=== PATIENT | male | born 1935 | race Caucasian/White ===

== ENCOUNTER 2019-04-20 13:10 | Inpatient (IN) ==
[2019-04-20] MEDS ORDERED: *HR* OxyCODONE Immed Rel 5 MG TABLET PO PRN (16:00)
[2019-04-20] MEDS ORDERED: hydroCHLOROthiazide 25 MG TABLET PO SCH (18:00)
[2019-04-20] MEDS: Apixaban 5 MG TABLET PO SCH (19:55)
[2019-04-20] MEDS: Hyoscyamine SL 0.125 MG TAB.SUBL PO SCH (19:56)
[2019-04-21 07:27] LABS: Basophils % 0.2 %; Eosinophils # 0.2 K/mcL (0.0-0.6); Hemoglobin 10.2 g/dL (12.9-16.9); Immature Granulocytes % 0.3 % (0-4); Lymphocytes # 0.9 K/mcL (0.6-4.6); Lymphocytes % 9.7 %; Mean Corpuscular Hemoglobin 35.3 pg (28.0-33.3); Mean Corpuscular Volume 103.8 fL (83.0-100.0); Mean Platelet Volume 9.9 fL (9.4-12.4); Monocytes % 11.1 %; Neutrophils # 6.9 K/mcL (1.6-8.9); Platelet Count 453 K/mcL (140-400); Red Blood Count 2.89 M/mcL (4.19-5.50); Red Cell Distribution Width 12.8 % (11.5-14.5); Segmented Neutrophils % 76.7 %
[2019-04-21 07:50] LABS: INR 1.4; Prothrombin Time 15.9 Seconds (9.4-12.1)
[2019-04-21 07:52] LABS: BUN/Creatinine Ratio 31 (6-26); Blood Urea Nitrogen 22 mg/dL (8-23); Calcium 8.5 mg/dL (8.6-10.3); Carbon Dioxide 28 mEq/L (23-29); Chloride 104 mEq/L (98-107); Glucose 104 mg/dL (70-105); Osmolality,Calculated 290 (280-300); Potassium 3.7 mEq/L (3.5-5.1); Sodium 138 mEq/L (136-145); eGFR For African Americans > 60 (> 60); eGFR For Non-African Americans > 60 (> 60)
[2019-04-21 07:53] LABS: Activated Partial Thrombo Time 35.5 Seconds (26.0-36.0)
[2019-04-21] MEDS: Hydroxyurea 500 MG CAPSULE PO SCH (09:29)
[2019-04-21] MEDS: amLODIPine 5 MG TABLET PO SCH (09:29)
[2019-04-21] MEDS: Apixaban 5 MG TABLET PO SCH ×2 (09:29→21:45)
[2019-04-21] MEDS: Finasteride 5 MG TABLET PO SCH (09:29)
[2019-04-21] MEDS: hydroCHLOROthiazide 25 MG TABLET PO SCH (09:29)
[2019-04-21] MEDS: Lisinopril 20 MG TABLET PO SCH (09:30)
--- NOTE | 2019-04-21 12:11 | Internal Med History&Physical ---
Date of Encounter: 04/21/19 Time of Encounter: 11:35 Assessment and Plan (1) Status post total hip replacement, left Current visit: No Status: Acute PT and OT evaluations with ongoing intervention will be done. Continue Eliquis for DVT prophylaxis. (2) Macrocytic anemia Current visit: Yes Status: Acute Anemia testing will be done in a.m. (3) Gout Current visit: Yes Status: Acute Uric acid level will be checked in a.m. Qualifiers: Gout site: unspecified site Gout etiology: unspecified cause Chronicity: chronic Presence of tophus: without tophus Qualified Code(s): M1A.9XX0 - Chronic gout, unspecified, without tophus (tophi) (4) History of DVT of lower extremity Current visit: No Status: Chronic Continue Eliquis (5) Atrial fibrillation Current visit: No Status: Chronic Continue Eliquis Qualifiers: Atrial fibrillation type: unspecified Qualified Code(s): I48.91 - Unspec ified atrial fibrillation (6) BPH (benign prostatic hyperplasia) Current visit: No Status: Chronic Continue Proscar and Flomax. Qualifiers: Lower urinary tract symptom presence: unspecified whether lower urinary tract symptoms present Qualified Code(s): N40.0 - Benign prostatic hyperplasia without lower urinary tract symptoms (7) HTN (hypertension) Current visit: No Status: Chronic Continue lisinopril, HCTZ, and Norvasc. Qualifiers: Hypertension type: unspecified Qualified Code(s): I10 - Essential (primary) hypertension (8) Thrombocytosis Current visit: No Status: Chronic Continue hydroxyurea. Internal Medicine - H&P: HPI Chief complaint: Reevaluation left THR Admitted From: Hospital to Hospital Transfer Plans for Post Hospital Care: Home History of present illness: Mr. Pastrana is a 83 year old male who was admitted to [facility] swing bed following [facility] 07-20 [facility] stay for revision left THR. He had elective left THR 04/13/2019 and was discharged home the following day. While at outpatient therapy at [facility] 04/16/2019 he experienced a fall sustaining a periprosthetic fracture of lesser trochanter. He underwent left THR revision surgery on April 17 and was discharged to swing bed for ongoing care needs. Orthopedic history is significant for right reverse total shoulder replacement March 2018 and right hip fracture with plate and screw repair in 2013. He has had right knee injections. He has diagnoses of gout and DJD. Past Med Surg Social Fam HX - Past Medical History Medical history: arthritis, atrial fibrillation, DVT, hypertension, other Additional medical history: IBS, pacemaker, polycythemia vera, thrombocytosis Psychiatric history: no psych history - Past Surgical History Surgical History: appendectomy, orthopedic, other, pacemaker/AICD Additional surgical history: tonsillectomy. right TSR. hip pinning d/t fx. left total hip replacement - Social History Smoking Status: Former smoker Smokeless Tobacco Status: No Alcohol use: heavy Drug use: none - Family History Brother Hx Family Cardiac Disorders: Yes Father Living Status: Hx Family Cardiac Disorders: Yes Hx Family Cancer: Yes (prostate) Mother Living Status: Internal Medicine - H&P: Meds Acetaminophen [Tylenol] 1,000 mg PO HS PRN 03/24/18 [History] Finasteride [Proscar] 5 mg PO QAM 03/24/18 [History] Lisinopril-HCTZ 20-12.5 [Prinzide 20-12.5] 1 tab PO QAM 03/24/18 [History] Tamsulosin [Flomax] 0.4 mg PO BID 03/24/18 [History] Hydroxyurea [Hydrea] 500 mg PO QAM #90 capsule 11/19/18 [Rx] Apixaban [Eliquis] 5 mg PO BID #60 tablet 12/31/18 [Rx] Amlodipine Besylate 10 mg PO DAILY 04/13/19 [History] Diclofenac Sodium 1 appl TD 3-4XD PRN 04/13/19 [History] Docusate Sodium [Colace] 100 mg PO BID 5 Days #10 capsule 04/13/19 [Rx] Hyoscyamine Sulfate [Hyoscyamine Sulfate ER] 0.375 mg PO HS 04/13/19 [History] OxyCODONE Immed Rel [Roxicodone 5 MG] 5 mg PO Q6HR PRN 5 Days #20 tablet 04/13/19 [Rx] Lisinopril/Hydrochlorothiazide [Lisinopril-Hctz 20-12.5 mg Tab] 0.5 tab PO QPM 04/16/19 [History] OxyCODONE Immed Rel [Roxicodone 5 MG] 5 mg PO Q6HR PRN 5 Days #20 tablet 04/20/19 [Rx] Allergy/AdvReac Type Severity Reaction Status Date / Time No Known Allergies Allergy Verified 04/06/19 10:30 All Systems PM: A 10-system review of systems was performed and is negative for pertinent findings except as documented above in the HPI. Review of systems: Gen.: His weight has increased minimally from 87.09 kg on 03/24/2018 to 91.172 kg on admission now Cardiovascular: He has history of hypertension and chronic atrial fibrillation. 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 He has had bilateral leg DVTs and is on Eliquis. He denies pulmonary embolism MS or heart failure. Respiratory: He smoked from age [age] never exceeding 2 packs per day. He denies chronic lung disease and does not use home oxygen. He denies testing for KRISTIE. GI: He has had hemorrhoidectomy and appendectomy. Denies disorders of his liver gallbladder or exocrine pancreas : He has urinary frequency from BPH. He denies other kidney bladder prostate disorders. Neurologic: He denies large distribution strokes or seizures. Endocrine: He denies diabetes thyroid disease or hyperlipidemia Hematology/oncology: He has thrombocytopenia and takes hydroxyurea. He was unaware he had anemia on recent labs. He has intracranial meningioma. He denie s other blood disorders or internal malignancies. Psychiatric: He has feelings of anxiety and depression periodically but does not take medication. He denies other mental health diagnoses. [place] skeletal: As per history of present illness - Constitutional Vitals: Temp Pulse Resp BP Pulse Ox 98.3 F 60 18 107/63 98 04/21/19 11:20 04/21/19 11:20 04/21/19 11:20 04/21/19 11:20 04/21/19 11:20 Exam: Gen.: He is a well-developed well-nourished male resting comfortably in a chair at bedside who appears in no acute distress HEENT: Head is atraumatic and normocephalic. Eyes: EOMI. There is no scleral icterus. Mouth: Mucosa is moist. Neck: Supple and nontender. There is no thyromegaly or adenopathy noted. Heart: Irregularly irregular without murmurs or gallops Lungs: No wheezes or crackles are heard. Abdomen: Soft and nontender. No masses or guarding are noted. Exam is limited because he is in a seated position. Extremities: He has 0-trace edema of the right lower leg and dorsum of foot. He has 1+ edema of the left lower leg and dorsum of foot. He has DJD changes of his hands. Neurologic: Mental status: He is talkative and a good historian. Cranial nerves: Smile is symmetric. Forehead wrinkles bilaterally. Tongue protrudes midline. EOMI. Motor: There is no pronator drift. Cerebellar: Finger to nose is intact bilaterally. Skin: Warm and dry Internal Med - H&P Results - Labs CBC & Chem 7: 04/21/19 07:00 04/21/19 07:00 Labs: Short CBC 04/21/19 Range/Units 07:00 WBC 9.0 (4.3-11.1) K/mcL Hgb 10.2 L (12.9-16.9) g/dL Hct 30.0 L (37.5-50.1) % Plt Count 453 H (140-400) K/mcL Neutrophils # 6.9 (1.6-8.9) K/mcL BMP 04/21/19 07:00 Sodium 138 Potassium 3.7 Chloride 104 Carbon Dioxide 28 BUN 22 Creatinine 0.72 Glucose 104 Calcium 8.5 L
[2019-04-21] MEDS: traZODone 50 MG TABLET PO SCH (21:45)
[2019-04-21] MEDS: Hyoscyamine SL 0.125 MG TAB.SUBL PO SCH (21:45)
[2019-04-22 07:32] LABS: Basophils % 0.3 %; Eosinophils # 0.2 K/mcL (0.0-0.6); Eosinophils % 1.8 %; Hematocrit 32.2 % (37.5-50.1); Immature Granulocytes % 0.4 % (0-4); Lymphocytes % 10.1 %; Mean Corpuscular HGB Conc 34.2 g/dL (31.6-35.5); Mean Corpuscular Hemoglobin 35.6 pg (28.0-33.3); Mean Corpuscular Volume 104.2 fL (83.0-100.0); Mean Platelet Volume 10.3 fL (9.4-12.4); Monocytes % 10.5 %; Neutrophils # 7.5 K/mcL (1.6-8.9); Platelet Count 565 K/mcL (140-400); Red Blood Count 3.09 M/mcL (4.19-5.50); Red Cell Distribution Width 12.6 % (11.5-14.5); Segmented Neutrophils % 76.9 %; White Blood Count 9.8 K/mcL (4.3-11.1)
[2019-04-22 07:57] LABS: Magnesium 1.9 mg/dL (1.6-2.6); Uric Acid 6.4 mg/dL (2.3-7.6)
[2019-04-22] MEDS: hydroCHLOROthiazide 25 MG TABLET PO SCH (09:11)
[2019-04-22] MEDS: Apixaban 5 MG TABLET PO SCH ×2 (09:12→21:32)
[2019-04-22] MEDS: Finasteride 5 MG TABLET PO SCH (09:12)
[2019-04-22] MEDS: Hydroxyurea 500 MG CAPSULE PO SCH (09:12)
[2019-04-22] MEDS: Lisinopril 20 MG TABLET PO SCH (09:12)
[2019-04-22] MEDS: amLODIPine 5 MG TABLET PO SCH (09:12)
[2019-04-22 10:23] LABS: Folate > 22.3 ng/mL (3.0-16.0); Vitamin B12 641 pg/mL (250-1100)
--- NOTE | 2019-04-22 17:59 | Internal Med Progress Note ---
Date of Encounter: 04/22/19 Time of Encounter: 17:52 - Assessment and plan (1) Status post total hip replacement, left Current Visit: No Status: Acute Assessment and plan: April 22. Continue PT and OT with Eliquis. (2) Macrocytic anemia Current Visit: Yes Status: Acute Assessment and plan: April 22. Hemoglobin has risen to 11.0. Anemia testing showed iron 40, transferrin saturation 20%, transferrin 144, ferritin 294, B12 641, and folate > 22.3. Continue to monitor CBC. (3) Gout Current Visit: Yes Status: Acute Assessment and plan: April 22. Uric acid level WNL at 6.4. Qualifiers: Gout site: unspecified site Gout etiology: unspecified cause Chronicity: chronic Presence of tophus: without tophus Qualified Code(s): M1A.9XX0 - Chronic gout, unspecified, without tophus (tophi) (4) History of DVT of lower extremity Current Visit: No Status: Chronic Assessment and plan: April 22. Continue Eliquis. (5) Atrial fibrillation Current Visit: No Status: Chronic Assessment and plan: April 22. Continue Eliquis. Qualifiers: Atrial fibrillation type: unspecified Qualified Code(s): I48.91 - Unspecified atrial fibrillation (6) BPH (benign prostatic hyperplasia) Current Visit: No Status: Chronic Assessment and plan: April 22. Continue Proscar and Flomax. Qualifiers: Lower urinary tract symptom presence: unspecified whether lower urinary tract symptoms present Qualified Code(s): N40.0 - Benign prostatic hyperplasia without lower urinary tract symptoms (7) HTN (hypertension) Current Visit: No Status: Chronic Assessment and plan: August 22. Continue lisinopril, HCTZ, and Norvasc. Qualifiers: Hypertension type: unspecified Qualified Code(s): I10 - Essential (primary) hypertension (8) Thrombocytosis Current Visit: No Status: Chronic Assessment and plan: April 22. Continue hydroxyurea. - Subjective Interval history: April 22. He has no new complaints and feels well. - Constitutional Vitals: Temp Pulse Resp BP Pulse Ox 98.5 F 60 18 135/75 100 04/22/19 06:45 04/22/19 06:45 04/22/19 06:45 04/22/19 06:45 04/22/19 06:45 Exam: He is resting comfortably in a chair at bedside and appears in no acute distress. His affect is bright and cheerful. I reviewed his medications and lab results. Internal Medicine: Result - Labs CBC & Chem 7: 04/22/19 07:01 04/21/19 07:00 Labs: Short CBC 04/22/19 Range/Units 07:01 WBC 9.8 (4.3-11.1) K/mcL Hgb 11.0 L (12.9-16.9) g/dL Hct 32.2 L (37.5-50.1) % Plt Count 565 H (140-400) K/mcL Neutrophils # 7.5 (1.6-8.9) K/mcL - ABG Interpretation ABG results: PT/INR, D-dimer PT 15.9 Seconds (9.4-12.1) H 04/21/19 07:00 Consult Discharge Plan - Plan Referrals: Melanie Aldana MD [Primary Care Provider] - 1 week
[2019-04-22] MEDS: traZODone 50 MG TABLET PO SCH (21:32)
[2019-04-22] MEDS: Hyoscyamine SL 0.125 MG TAB.SUBL PO SCH (21:32)
[2019-04-23] MEDS: Apixaban 5 MG TABLET PO SCH ×2 (09:10→20:30)
[2019-04-23] MEDS: hydroCHLOROthiazide 25 MG TABLET PO SCH (09:10)
[2019-04-23] MEDS: amLODIPine 5 MG TABLET PO SCH (09:11)
[2019-04-23] MEDS: Finasteride 5 MG TABLET PO SCH (09:11)
[2019-04-23] MEDS: Hydroxyurea 500 MG CAPSULE PO SCH (09:11)
[2019-04-23] MEDS: Lisinopril 20 MG TABLET PO SCH (09:11)
[2019-04-23] MEDS: traZODone 50 MG TABLET PO SCH (20:30)
[2019-04-23] MEDS: Hyoscyamine SL 0.125 MG TAB.SUBL PO SCH (20:34)
[2019-04-24] MEDS: Hydroxyurea 500 MG CAPSULE PO SCH (09:57)
[2019-04-24] MEDS: Finasteride 5 MG TABLET PO SCH (09:57)
[2019-04-24] MEDS: hydroCHLOROthiazide 25 MG TABLET PO SCH (09:58)
[2019-04-24] MEDS: Apixaban 5 MG TABLET PO SCH ×2 (09:58→21:15)
[2019-04-24] MEDS: Lisinopril 20 MG TABLET PO SCH (09:58)
[2019-04-24] MEDS: amLODIPine 5 MG TABLET PO SCH (09:58)
--- NOTE | 2019-04-24 14:45 | Internal Med Progress Note ---
Date of Encounter: 04/24/19 Time of Encounter: 14:35 - Assessment and plan (1) Status post total hip replacement, left Current Visit: No Status: Acute Assessment and plan: April 22. Continue PT and OT with Eliquis. (2) Macrocytic anemia Current Visit: Yes Status: Acute Assessment and plan: April 22. Hemoglobin has risen to 11.0. Anemia testing showed iron 40, transferrin saturation 20%, transferrin 144, ferritin 294, B12 641, and folate > 22.3. Continue to monitor CBC. (3) Gout Current Visit: Yes Status: Acute Assessment and plan: April 22. Uric acid level WNL at 6.4. Qualifiers: Gout site: unspecified site Gout etiology: unspecified cause Chronicity: chronic Presence of tophus: without tophus Qualified Code(s): M1A.9XX0 - Chronic gout, unspecified, without tophus (tophi) (4) History of DVT of lower extremity Current Visit: No Status: Chronic Assessment and plan: April 22. Continue Eliquis. (5) Atrial fibrillation Current Visit: No Status: Chronic Assessment and plan: April 22. Continue Eliquis. Qualifiers: Atrial fibrillation type: unspecified Qualified Code(s): I48.91 - Unspecified atrial fibrillation (6) BPH (benign prostatic hyperplasia) Current Visit: No Status: Chronic Assessment and plan: April 22. Continue Proscar and Flomax. Qualifiers: Lower urinary tract symptom presence: unspecified whether lower urinary tract symptoms present Qualified Code(s): N40.0 - Benign prostatic hyperplasia without lower urinary tract symptoms (7) HTN (hypertension) Current Visit: No Status: Chronic Assessment and plan: August 22. Continue lisinopril, HCTZ, and Norvasc. Qualifiers: Hypertension type: unspecified Qualified Code(s): I10 - Essential (primary) hypertension (8) Thrombocytosis Current Visit: No Status: Chronic Assessment and plan: April 22. Continue hydroxyurea. - Subjective Interval history: April 22. He has no new complaints and feels well. April 24. He has no new complaints. He reports diarrhea earlier today. - Constitutional Vitals: Temp Pulse Resp BP Pulse Ox 97.9 F 64 16 114/69 98 04/24/19 07:11 04/24/19 07:11 04/24/19 07:11 04/24/19 07:11 04/24/19 07:11 Exam: He is resting comfortably in bed and appears in no acute distress. Extremities show 0 to trace edema bilaterally. His affect is cheerful. I reviewed his medications and lab results. Internal Medicine: Result - Labs CBC & Chem 7: 04/22/19 07:01 04/21/19 07:00 - ABG Interpretation ABG results: PT/INR, D-dimer PT 15.9 Seconds (9.4-12.1) H 04/21/19 07:00 Consult Discharge Plan - Plan Referrals: Melanie Aldana MD [Primary Care Provider] - 1 week
[2019-04-24] MEDS: traZODone 50 MG TABLET PO SCH (21:14)
[2019-04-24] MEDS: DICLOFENAC TOPICAL GEL TP PRN (21:15)
[2019-04-24] MEDS: Hyoscyamine SL 0.125 MG TAB.SUBL PO SCH (21:15)
[2019-04-25] MEDS: hydroCHLOROthiazide 25 MG TABLET PO SCH (09:30)
[2019-04-25] MEDS: amLODIPine 5 MG TABLET PO SCH (09:30)
[2019-04-25] MEDS: Finasteride 5 MG TABLET PO SCH (09:30)
[2019-04-25] MEDS: Lisinopril 20 MG TABLET PO SCH (09:30)
[2019-04-25] MEDS: Apixaban 5 MG TABLET PO SCH ×2 (09:31→21:51)
[2019-04-25] MEDS: Hydroxyurea 500 MG CAPSULE PO SCH (09:31)
[2019-04-25] MEDS: Hyoscyamine SL 0.125 MG TAB.SUBL PO SCH (21:51)
[2019-04-25] MEDS: traZODone 50 MG TABLET PO SCH (21:51)
[2019-04-26] MEDS: hydroCHLOROthiazide 25 MG TABLET PO SCH (10:08)
[2019-04-26] MEDS: Apixaban 5 MG TABLET PO SCH ×2 (10:09→20:09)
[2019-04-26] MEDS: Hydroxyurea 500 MG CAPSULE PO SCH (10:09)
[2019-04-26] MEDS: Lisinopril 20 MG TABLET PO SCH (10:09)
[2019-04-26] MEDS: Finasteride 5 MG TABLET PO SCH (10:09)
[2019-04-26] MEDS: amLODIPine 5 MG TABLET PO SCH (10:09)
[2019-04-26] MEDS: DICLOFENAC TOPICAL GEL TP PRN (10:13)
[2019-04-26] MEDS: Hyoscyamine SL 0.125 MG TAB.SUBL PO SCH (20:09)
[2019-04-26] MEDS: traZODone 50 MG TABLET PO SCH (20:09)
[2019-04-27 06:02] LABS: Basophils # 0.1 K/mcL (0.0-0.2); Basophils % 0.8 %; Eosinophils # 0.3 K/mcL (0.0-0.6); Eosinophils % 3.3 %; Hematocrit 32.1 % (37.5-50.1); Hemoglobin 10.6 g/dL (12.9-16.9); Immature Granulocytes % 0.3 % (0-4); Lymphocytes # 1.1 K/mcL (0.6-4.6); Lymphocytes % 14.6 %; Mean Corpuscular Hemoglobin 34.9 pg (28.0-33.3); Mean Corpuscular Volume 105.6 fL (83.0-100.0); Monocytes # 0.8 K/mcL (0.0-1.3); Monocytes % 10.3 %; Neutrophils # 5.5 K/mcL (1.6-8.9); Platelet Count 555 K/mcL (140-400); Red Blood Count 3.04 M/mcL (4.19-5.50); Red Cell Distribution Width 12.5 % (11.5-14.5); Segmented Neutrophils % 70.7 %; White Blood Count 7.8 K/mcL (4.3-11.1)
[2019-04-27 06:20] LABS: BUN/Creatinine Ratio 30 (6-26); Blood Urea Nitrogen 26 mg/dL (8-23); Carbon Dioxide 28 mEq/L (23-29); Chloride 106 mEq/L (98-107); Glucose 96 mg/dL (70-105); Magnesium 1.8 mg/dL (1.6-2.6); Osmolality,Calculated 299 (280-300); Potassium 3.9 mEq/L (3.5-5.1); Sodium 142 mEq/L (136-145); eGFR For African Americans > 60 (> 60); eGFR For Non-African Americans > 60 (> 60)
[2019-04-27] MEDS: Apixaban 5 MG TABLET PO SCH ×2 (09:01→21:41)
[2019-04-27] MEDS: Hydroxyurea 500 MG CAPSULE PO SCH (09:01)
[2019-04-27] MEDS: Finasteride 5 MG TABLET PO SCH (09:02)
[2019-04-27] MEDS: amLODIPine 5 MG TABLET PO SCH (09:02)
[2019-04-27] MEDS: hydroCHLOROthiazide 25 MG TABLET PO SCH (09:02)
[2019-04-27] MEDS: Lisinopril 20 MG TABLET PO SCH (09:02)
--- NOTE | 2019-04-27 15:17 | Internal Med Progress Note ---
Date of Encounter: 04/28/19 Time of Encounter: 15:10 - Assessment and plan (1) Status post total hip replacement, left Current Visit: No Status: Acute (2) Macrocytic anemia Current Visit: Yes Status: Acute (3) Gout Current Visit: Yes Status: Acute Qualifiers: Gout site: unspecified site Gout etiology: unspecified cause Chronicity: chronic Presence of tophus: without tophus Qualified Code(s): M1A.9XX0 - Chronic gout, unspecified, without tophus (tophi) (4) History of DVT of lower extremity Current Visit: No Status: Chronic (5) Atrial fibrillation Current Visit: No Status: Chronic Qualifiers: Atrial fibrillation type: unspecified Qualified Code(s): I48.91 - Unspecified atrial fibrillation (6) BPH (benign prostatic hyperplasia) Current Visit: No Status: Chronic Qualifiers: Lower urinary tract symptom presence: unspecified whether lower urinary tract symptoms present Qualified Code(s): N40.0 - Benign prostatic hyperplasia without lower urinary tract symptoms (7) HTN (hypertension) Current Visit: No Status: Chronic Qualifiers: Hypertension type: unspecified Qualified Code(s): I10 - Essential (primary) hypertension (8) Thrombocytosis Current Visit: No Status: Chronic - Subjective Interval history: April 22. He has no new complaints and feels well. April 24. He has no new complaints. He reports diarrhea earlier today. - Constitutional Vitals: Temp Pulse Resp BP Pulse Ox 98.2 F 64 16 133/73 100 04/27/19 07:36 04/27/19 07:36 04/27/19 07:36 04/27/19 07:36 04/27/19 07:36 Internal Medicine: Result - Labs CBC & Chem 7: 04/27/19 05:37 04/27/19 05:37 Labs: Short CBC 04/27/19 Range/Units 05:37 WBC 7.8 (4.3-11.1) K/mcL Hgb 10.6 L (12.9-16.9) g/dL Hct 32.1 L (37.5-50.1) % Plt Count 555 H (140-400) K/mcL Neutrophils # 5.5 (1.6-8.9) K/mcL BMP 04/27/19 05:37 Sodium 142 Potassium 3.9 Chloride 106 Carbon Dioxide 28 BUN 26 H Creatinine 0.86 Glucose 96 Calcium 9.0 - ABG Interpretation ABG results: PT/INR, D-dimer PT 15.9 Seconds (9.4-12.1) H 04/21/19 07:00 Consult Discharge Plan - Plan Referrals: Melanie Aldana MD [Primary Care Provider] - 1 week
--- NOTE | 2019-04-27 15:24 | Internal Med Progress Note ---
Date of Encounter: 04/27/19 Time of Encounter: 15:10 - Assessment and plan (1) Status post total hip replacement, left Current Visit: No Status: Acute Assessment and plan: April 22. Continue PT and OT with Eliquis. (2) Macrocytic anemia Current Visit: Yes Status: Acute Assessment and plan: April 22. Hemoglobin has risen to 11.0. Anemia testing showed iron 40, transferrin saturation 20%, transferrin 144, ferritin 294, B12 641, and folate > 22.3. Continue to monitor CBC. April 27. Hemoglobin slightly decreased to 10.6 today. Continue to monitor. (3) Gout Current Visit: Yes Status: Acute Assessment and plan: April 22. Uric acid level WNL at 6.4. Qualifiers: Gout site: unspecified site Gout etiology: unspecified cause Chronicity: chronic Presence of tophus: without tophus Qualified Code(s): M1A.9XX0 - Chronic gout, unspecified, without tophus (tophi) (4) History of DVT of lower extremity Current Visit: No Status: Chronic Assessment and plan: April 22. Continue Eliquis. (5) Atrial fibrillation Current Visit: No Status: Chronic Assessment and plan: April 22. Continue Eliquis. Qualifiers: Atrial fibrillation type: unspecified Qualified Code(s): I48.91 - Unspecified atrial fibrillation (6) BPH (benign prostatic hyperplasia) Current Visit: No Status: Chronic Assessment and plan: April 22. Continue Proscar and Flomax. Qualifiers: Lower urinary tract symptom presence: unspecified whether lower urinary tract symptoms present Qualified Code(s): N40.0 - Benign prostatic hyperplasia without lower urinary tract symptoms (7) HTN (hypertension) Current Visit: No Status: Chronic Assessment and plan: August 22. Continue lisinopril, HCTZ, and Norvasc. Qualifiers: Hypertension type: unspecified Qualified Code(s): I10 - Essential (primary) hypertension (8) Thrombocytosis Current Visit: No Status: Chronic Assessment and plan: April 22. Continue hydroxyurea. (9) Insomnia Current Visit: Yes Status: Acute Assessment and plan: April 27. Trazodone dose will be increased to 100 mg at bedtime. Qualifiers: Insomnia type: unspecified Qualified Code(s): G47.00 - Insomnia, unspecified - Subjective Interval history: April 22. He has no new complaints and feels well. April 24. He has no new complaints. He reports diarrhea earlier today. April 27. He has no new complaints except he did not sleep well last night - Constitutional Vitals: Temp Pulse Resp BP Pulse Ox 98.2 F 64 16 133/73 100 04/27/19 07:36 04/27/19 07:36 04/27/19 07:36 04/27/19 07:36 04/27/19 07:36 Exam: He is resting comfortably in bed and appears in no acute distress. His affect is cheerful. Internal Medicine: Result - Labs CBC & Chem 7: 04/27/19 05:37 04/27/19 05:37 Labs: Short CBC 04/27/19 Range/Units 05:37 WBC 7.8 (4.3-11.1) K/mcL Hgb 10.6 L (12.9-16.9) g/dL Hct 32.1 L (37.5-50.1) % Plt Count 555 H (140-400) K/mcL Neutrophils # 5.5 (1.6-8.9) K/mcL BMP 04/27/19 05:37 Sodium 142 Potassium 3.9 Chloride 106 Carbon Dioxide 28 BUN 26 H Creatinine 0.86 Glucose 96 Calcium 9.0 - ABG Interpretation ABG results: PT/INR, D-dimer PT 15.9 Seconds (9.4-12.1) H 04/21/19 07:00 Consult Discharge Plan - Plan Referrals: Melanie Aldana MD [Primary Care Provider] - 1 week
[2019-04-27] MEDS: Hyoscyamine SL 0.125 MG TAB.SUBL PO SCH (21:42)
[2019-04-27] MEDS: traZODone 50 MG TABLET PO SCH (21:42)
[2019-04-28] MEDS: Hydroxyurea 500 MG CAPSULE PO SCH (08:21)
[2019-04-28] MEDS: Lisinopril 20 MG TABLET PO SCH (08:21)
[2019-04-28] MEDS: Apixaban 5 MG TABLET PO SCH ×2 (08:21→20:52)
[2019-04-28] MEDS: Finasteride 5 MG TABLET PO SCH (08:21)
[2019-04-28] MEDS: hydroCHLOROthiazide 25 MG TABLET PO SCH (08:22)
[2019-04-28] MEDS: amLODIPine 5 MG TABLET PO SCH (08:22)
[2019-04-28] MEDS: DICLOFENAC TOPICAL GEL TP PRN (17:41)
[2019-04-28] MEDS: Hyoscyamine SL 0.125 MG TAB.SUBL PO SCH (20:53)
[2019-04-28] MEDS: traZODone 50 MG TABLET PO SCH (21:41)
[2019-04-29] MEDS: hydroCHLOROthiazide 25 MG TABLET PO SCH (08:07)
[2019-04-29] MEDS: Finasteride 5 MG TABLET PO SCH (08:07)
[2019-04-29] MEDS: Lisinopril 20 MG TABLET PO SCH (08:09)
[2019-04-29] MEDS: amLODIPine 5 MG TABLET PO SCH (08:09)
[2019-04-29] MEDS: Apixaban 5 MG TABLET PO SCH ×2 (08:09→22:00)
[2019-04-29] MEDS: Hydroxyurea 500 MG CAPSULE PO SCH (08:10)
--- NOTE | 2019-04-29 12:43 | Internal Med Progress Note ---
Date of Encounter: 04/29/19 Time of Encounter: 12:35 - Assessment and plan (1) Status post total hip replacement, left Current Visit: No Status: Acute Assessment and plan: April 22. Continue PT and OT with Eliquis. (2) Macrocytic anemia Current Visit: Yes Status: Acute Assessment and plan: April 22. Hemoglobin has risen to 11.0. Anemia testing showed iron 40, transferrin saturation 20%, transferrin 144, ferritin 294, B12 641, and folate > 22.3. Continue to monitor CBC. April 27. Hemoglobin slightly decreased to 10.6 today. Continue to monitor. (3) Gout Current Visit: Yes Status: Acute Assessment and plan: April 22. Uric acid level WNL at 6.4. Qualifiers: Gout site: unspecified site Gout etiology: unspecified cause Chronicity: chronic Presence of tophus: without tophus Qualified Code(s): M1A.9XX0 - Chronic gout, unspecified, without tophus (tophi) (4) History of DVT of lower extremity Current Visit: No Status: Chronic Assessment and plan: April 22. Continue Eliquis. (5) Atrial fibrillation Current Visit: No Status: Chronic Assessment and plan: April 22. Continue Eliquis. Qualifiers: Atrial fibrillation type: unspecified Qualified Code(s): I48.91 - Unspecified atrial fibrillation (6) BPH (benign prostatic hyperplasia) Current Visit: No Status: Chronic Assessment and plan: April 22. Continue Proscar and Flomax. Qualifiers: Lower urinary tract symptom presence: unspecified whether lower urinary tract symptoms present Qualified Code(s): N40.0 - Benign prostatic hyperplasia without lower urinary tract symptoms (7) HTN (hypertension) Current Visit: No Status: Chronic Assessment and plan: April 22. Continue lisinopril, HCTZ, and Norvasc. April 29. Blood pressure occasionally borderline low. Decrease lisinopril and amlodipine. Qualifiers: Hypertension type: unspecified Qualified Code(s): I10 - Essential (primary) hypertension (8) Thrombocytosis Current Visit: No Status: Chronic Assessment and plan: April 22. Continue hydroxyurea. - Subjective Interval history: April 22. He has no new complaints and feels well. April 24. He has no new complaints. He reports diarrhea earlier today. April 27. He has no new complaints except he did not sleep well last night. April 29. He has no new complaints. - Constitutional Vitals: Temp Pulse Resp BP Pulse Ox 98.8 F 60 16 113/70 99 04/29/19 07:10 04/29/19 07:10 04/29/19 07:10 04/29/19 07:10 04/29/19 07:10 Exam: He is standing at bedside working with a therapist. His affect is bright and cheerful. I reviewed his medications and lab results. Internal Medicine: Result - Labs CBC & Chem 7: 04/27/19 05:37 04/27/19 05:37 - ABG Interpretation ABG results: PT/INR, D-dimer PT 15.9 Seconds (9.4-12.1) H 04/21/19 07:00 Consult Discharge Plan - Plan Referrals: Melanie Aldana MD [Primary Care Provider] - 1 week
[2019-04-29] MEDS: Hyoscyamine SL 0.125 MG TAB.SUBL PO SCH (22:00)
[2019-04-29] MEDS: traZODone 50 MG TABLET PO SCH (22:01)
[2019-04-30] MEDS: hydroCHLOROthiazide 25 MG TABLET PO SCH (09:46)
[2019-04-30] MEDS: Hydroxyurea 500 MG CAPSULE PO SCH (09:46)
[2019-04-30] MEDS: Apixaban 5 MG TABLET PO SCH ×2 (09:46→21:17)
[2019-04-30] MEDS: Finasteride 5 MG TABLET PO SCH (09:46)
[2019-04-30] MEDS: Lisinopril 20 MG TABLET PO SCH (09:46)
[2019-04-30] MEDS: amLODIPine 5 MG TABLET PO SCH (09:47)
--- NOTE | 2019-04-30 19:48 | Discharge Summary ---
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 (5) Atrial fibrillation Priority: Secondary Status: Chronic Qualifiers: Atrial fibrillation type: unspecified Qualified Code(s): I48.91 - Unspecified atrial fibrillation (6) BPH (benign prostatic hyperplasia) Priority: Secondary Status: Chronic Qualifiers: Lower urinary tract symptom presence: unspecified whether lower urinary tract symptoms present Qualified Code(s): N40.0 - Benign prostatic hyperplasia without lower urinary tract symptoms (7) HTN (hypertension) Priority: Secondary Status: Chronic Qualifiers: Hypertension type: unspecified Qualified Code(s): I10 - Essential (primary) hypertension (8) Thrombocytosis Priority: Secondary Status: Chronic Hospital course: Mr. Pastrana is a 83 year old male who was admitted to [facility] swing bed following April 16 [facility] stay for revision left THR. He had elective left THR 04/13/2019 and was discharged home the following day. While at outpatient therapy at [facility] 04/16/2019 he experienced a fall sustaining a periprosthetic fracture of lesser trochanter. He underwent left THR revision surgery on April 17 and was discharged to swing bed for ongoing care needs. I saw him April 21 and performed the swing bed history and physical. He had physical therapy and occupational therapy evaluations with ongoing intervention. Eliquis was continued for DVT prophylaxis, atrial fibrillation, and history of DVT. He progressed satisfactorily. There were no new problems and he was stable for discharge on 05/01/2019. He will follow-up with the orthopedist tomorrow morning after discharge. He will follow with his PCP within 1 week. He had borderline hypotension so Norvasc was decreased to 5 mg daily and his evening dose of lisinopril/HCTZ was discontinued. His PCP can monitor and just medications further as needed. He will follow with Dr. Aldana within 1 week. - Time Spent with Patient Total time spent providing and/or coordinating discharge services: - Discharge Medications Prescriptions: Continued Acetaminophen [Tylenol] 1,000 mg PO HS PRN PRN Reason: Mild To Moderate Pain Tamsulosin [Flomax] 0.4 mg PO BID Lisinopril-HCTZ 20-12.5 [Prinzide 20-12.5] 1 tab PO QAM Finasteride [Proscar] 5 mg PO QAM Hydroxyurea [Hydrea] 500 mg PO QAM #90 capsule Apixaban [Eliquis] 5 mg PO BID #60 tablet Diclofenac Sodium 1 appl TD 3-4XD PRN PRN Reason: Mild To Moderate Pain Hyoscyamine Sulfate [Hyoscyamine Sulfate ER] 0.375 mg PO HS Docusate Sodium [Colace] 100 mg PO BID 5 Days #10 capsule OxyCODONE Immed Rel [Roxicodone 5 MG] 5 mg PO Q6HR PRN 5 Days #20 tablet PRN Reason: Severe Pain OxyCODONE Immed Rel [Roxicodone 5 MG] 5 mg PO Q6HR PRN 5 Days #20 tablet PRN Reason: Severe Pain Changed Amlodipine Besylate 5 mg PO DAILY #0 Discontinued Lisinopril/Hydrochlorothiazide [Lisinopril-Hctz 20-12.5 mg Tab] 0.5 tab PO QPM Home Medications: Acetaminophen [Tylenol] 1,000 mg PO HS PRN 03/24/18 [History] Finasteride [Proscar] 5 mg PO QAM 03/24/18 [History] Lisinopril-HCTZ 20-12.5 [Prinzide 20-12.5] 1 tab PO QAM 03/24/18 [History] Tamsulosin [Flomax] 0.4 mg PO BID 03/24/18 [History] Hydroxyurea [Hydrea] 500 mg PO QAM #90 capsule 11/19/18 [Rx] Apixaban [Eliquis] 5 mg PO BID #60 tablet 12/31/18 [Rx] Diclofenac Sodium 1 appl TD 3-4XD PRN 04/13/19 [History] Docusate Sodium [Colace] 100 mg PO BID 5 Days #10 capsule 04/13/19 [Rx] Hyoscyamine Sulfate [Hyoscyamine Sulfate ER] 0.375 mg PO HS 04/13/19 [History] OxyCODONE Immed Rel [Roxicodone 5 MG] 5 mg PO Q6HR PRN 5 Days #20 tablet 04/13/19 [Rx] OxyCODONE Immed Rel [Roxicodone 5 MG] 5 mg PO Q6HR PRN 5 Days #20 tablet 04/20/19 [Rx] Amlodipine Besylate 5 mg PO DAILY #0 04/30/19 [Rx] Allergies/Adverse Reactions: Allergy/AdvReac Type Severity Reaction Status Date / Time No Known Allergies Allergy Verified 04/06/19 10:30 Date of admission: 04/20/19 16:11 Primary care physician: Melanie Aldana Consults: 04/20/19 15:39 Consult to Occupational Therapy [CONS] Routine Comment: eval, develop, implement POC Reason for Consult: eval, develop, implement POC Does patient have active BEDREST order?: No Is patient medically & hemodynamically stable?: Yes Consult to Physical Therapy [CONS] Routine Comment: eval, develop, implement POC Reason for Consult: eval, develop, implement POC Does patient have active BEDREST order?: No Is patient medically & hemodynamically stable?: Yes Consult to Skin Washer [CONS] Routine Reason for SW Consult: discharge planning - Constitutional Vitals: Temp Pulse Resp BP Pulse Ox 98.6 F 60 18 108/53 99 04/30/19 19:08 04/30/19 19:08 04/30/19 19:08 04/30/19 19:08 04/30/19 19:08 - Patient Status Disposition: Home Health Service - Discharge Instructions Follow Up With: Melanie Aldana MD [Primary Care Provider] - 1 week - Diet and Activity Activity: as per physical therapy
[2019-04-30] MEDS: Hyoscyamine SL 0.125 MG TAB.SUBL PO SCH (21:17)
[2019-04-30] MEDS: traZODone 50 MG TABLET PO SCH (21:17)
[2019-05-01 07:18] VITALS: BP 130/72
[2019-05-01] MEDS: Hydroxyurea 500 MG CAPSULE PO SCH (07:51)
[2019-05-01] MEDS: Apixaban 5 MG TABLET PO SCH (07:51)
[2019-05-01] MEDS: Lisinopril 20 MG TABLET PO SCH (07:52)
[2019-05-01] MEDS: hydroCHLOROthiazide 25 MG TABLET PO SCH (07:52)
[2019-05-01] MEDS: amLODIPine 5 MG TABLET PO SCH (07:52)
[2019-05-01] MEDS: Finasteride 5 MG TABLET PO SCH (07:52)
== END 2019-05-01 09:18 | disposition home health service (06) | DRG 561 ==
LOC: INPPIK 16:11
PROVIDERS: ADMIT Internal Medicine; ATTEND Internal Medicine